=== PATIENT | female | born 1955 | race Caucasian/White ===

== ENCOUNTER 2017-08-23 05:33 | Inpatient (IN) | payer OTHER ==
[2017-08-23] MEDS ORDERED: DEXTROSE 5%-LR 1,000 ML IV (07:30)
[2017-08-23] MEDS: CEFAZOLIN 2 GM/50 ML (PMX) 50 ML IVPB (07:30)
[2017-08-23] MEDS ORDERED: MIDAZOLAM 1 MG/ML 2 ML INJ (07:40)
[2017-08-23] MEDS ORDERED: morphine SULFATE/PF (10 MG/10 ML) INJ (07:41)
[2017-08-23] MEDS ORDERED: BUPIVACAINE 0.75%/DEXT (SPINAL) 2 ML INJ (07:53)
[2017-08-23] MEDS: LACTATED RINGER'S 1,000 ML IV ×3 (08:07→18:30)
[2017-08-23] MEDS: BUPIVACAINE 0.25%/EPI (SDV) 30 ML INJ INJ (08:29)
[2017-08-23] MEDS ORDERED: HYDROmorphONE 0.5 MG/0.5 ML SYG IV (08:30)
[2017-08-23] MEDS ORDERED: ZOLPIDEM 5 MG TAB PO (08:30)
[2017-08-23] MEDS ORDERED: BISACODYL (EC) 5 MG TAB PO (08:30)
[2017-08-23] MEDS: KETOROLAC 30 MG INJ IV ×3 (08:30→20:45)
[2017-08-23] MEDS ORDERED: HYDROCODONE/APAP (5/325) TAB PO ×2 (08:30)
[2017-08-23] MEDS ORDERED: DIPHENHYDRAMINE 50 MG CAP PO (08:30)
[2017-08-23] MEDS: HYDROCHLOROTHIAZIDE 25 MG TAB PO (09:00)
[2017-08-23] MEDS: THROMBIN 5000 UNIT VIAL (09:02)
[2017-08-23] MEDS ORDERED: LIDOCAINE 2% (SDV) 5 ML INJ (10:55)
[2017-08-23] MEDS ORDERED: ETOMIDATE 20 MG INJ (10:55)
[2017-08-23] MEDS ORDERED: ROCURONIUM 50 MG INJ (10:55)
[2017-08-23] MEDS ORDERED: GLYCOPYRROLATE 0.4 MG INJ (10:56)
[2017-08-23] MEDS ORDERED: CEFAZOLIN 1 GM INJ (10:56)
[2017-08-23] MEDS ORDERED: NEOSTIGMINE 3 MG/3 ML SYRINGE (10:56)
[2017-08-23] MEDS ORDERED: ONDANSETRON 4 MG INJ (11:02)
[2017-08-23] MEDS ORDERED: MEPERIDINE 25 MG INJ IV (11:30)
[2017-08-23] MEDS ORDERED: HYDROmorphONE (0.2 MG/ML) 10ML SYG IV ×2 (11:30)
[2017-08-23] MEDS ORDERED: DIPHENHYDRAMINE 50 MG INJ IV (11:30)
[2017-08-23] MEDS ORDERED: LABETALOL HCL 20MG INJ IV (11:30)
[2017-08-23] MEDS ORDERED: FENTAnyl 50 MCG/ML VIAL IV (11:30)
[2017-08-23] MEDS ORDERED: ONDANSETRON 4 MG INJ IV (11:30)
[2017-08-23] MEDS: ONDANSETRON 4 MG INJ IV ×3 (11:34→18:32)
[2017-08-23] MEDS: METOCLOPRAMIDE 10 MG TAB PO ×3 (12:00→23:31)
[2017-08-23] MEDS: CEFAZOLIN 1 GM/50 ML (PMX) 50 ML IVPB ×2 (13:24→21:29)
[2017-08-24] MEDS: KETOROLAC 30 MG INJ IV ×4 (02:11→20:31)
[2017-08-24] MEDS: LACTATED RINGER'S 1,000 ML IV (03:03)
[2017-08-24 05:36] LABS: ADD MAN DIFF? NO
[2017-08-24 05:41] LABS: BASOPHILS % 0.2 % (0.0-2.0); EOSINOPHILS # 0.1 10^3/ul (0.0-0.5); EOSINOPHILS % 0.4 % (0.0-7.0); HEMATOCRIT 34.4 % (37.0-47.0); HEMOGLOBIN 11.6 g/dl (12.0-16.0); LYMPHOCYTES # 1.5 10^3/ul (0.8-2.9); MEAN CORPUSCULAR HEMOGLOBIN 31.6 pg (29.0-33.0); MEAN CORPUSCULAR HGB CONC 33.7 g/dl (32.0-37.0); MEAN CORPUSCULAR VOLUME 93.7 fl (82.0-101.0); MEAN PLATELET VOLUME 10.8 fl (7.4-10.4); MONOCYTE # 1.3 10^3/ul (0.3-0.9); PLATELET COUNT 291 10^3/UL (140-415); RED BLOOD COUNT 3.67 10^6/ul (4.20-5.40)
[2017-08-24] MEDS: METOCLOPRAMIDE 10 MG TAB PO ×3 (05:55→17:51)
[2017-08-24] MEDS: CEFAZOLIN 1 GM/50 ML (PMX) 50 ML IVPB (05:55)
[2017-08-24 06:02] LABS: ANION GAP 11 (8-16); BLOOD UREA NITROGEN 9 mg/dl (7-20); CARBON DIOXIDE 30 mmol/L (21-31); CHLORIDE 104 mmol/L (97-110); CREATININE 0.72 mg/dl (0.44-1.00); POTASSIUM 3.5 mmol/L (3.5-5.1); SODIUM 141 mmol/L (135-144)
[2017-08-24] MEDS: HYDROCHLOROTHIAZIDE 25 MG TAB PO (08:57)
[2017-08-25] MEDS: KETOROLAC 30 MG INJ IV ×3 (03:02→14:30)
[2017-08-25] MEDS: METOCLOPRAMIDE 10 MG TAB PO ×4 (05:50→18:26)
[2017-08-25 05:55] LABS: ADD MAN DIFF? NO
[2017-08-25 06:08] LABS: BASOPHIL # 0.1 10^3/ul (0.0-0.1); BASOPHILS % 0.4 % (0.0-2.0); EOSINOPHILS # 0.2 10^3/ul (0.0-0.5); EOSINOPHILS % 1.6 % (0.0-7.0); HEMATOCRIT 33.8 % (37.0-47.0); HEMOGLOBIN 11.3 g/dl (12.0-16.0); LYMPHOCYTES # 1.8 10^3/ul (0.8-2.9); LYMPHOCYTES % 14.2 % (15.0-51.0); MEAN CORPUSCULAR HEMOGLOBIN 31.2 pg (29.0-33.0); MEAN CORPUSCULAR HGB CONC 33.4 g/dl (32.0-37.0); MEAN CORPUSCULAR VOLUME 93.4 fl (82.0-101.0); MONOCYTE # 1.3 10^3/ul (0.3-0.9); MONOCYTES % 10.1 % (0.0-11.0); NEUTROPHIL # 9.4 10^3/ul (1.6-7.5); NEUTROPHILS % 73.3 % (39.0-77.0); PLATELET COUNT 267 10^3/UL (140-415); RED BLOOD COUNT 3.62 10^6/ul (4.20-5.40); RED CELL DISTRIBUTION WIDTH 13.1 % (11.5-14.5)
[2017-08-25 06:08] LABS: WHITE BLOOD COUNT 12.8 10^3/ul (4.8-10.8)
[2017-08-25] MEDS: HYDROCHLOROTHIAZIDE 25 MG TAB PO (09:43)
== END 2017-08-25 21:30 | disposition home or self-care (01) | DRG 743 ==
LOC: REC 05:33 → MS1 12:45
PROC: 0UT97ZZ Resection of Uterus, Via Natural or Artificial Opening (ICD-10-PCS; principal; 2017-08-23 07:30)
PROC: 0TSD0ZZ Reposition Urethra, Open Approach (ICD-10-PCS; 2017-08-23 07:30)
PROC: 0UB70ZZ Excision of Bilateral Fallopian Tubes, Open Approach (ICD-10-PCS; 2017-08-23 07:30)
PROC: 0TUD0JZ Supplement Urethra with Synthetic Substitute, Open Approach (ICD-10-PCS; 2017-08-23 07:30)
PROC: 0UBGXZX Excision of Vagina, External Approach, Diagnostic (ICD-10-PCS; 2017-08-23 07:30)
PROC: 0JQC0ZZ Repair Pelvic Region Subcutaneous Tissue and Fascia, Open Approach (ICD-10-PCS; 2017-08-23 07:30)
PROC: 0TJB8ZZ Inspection of Bladder, Via Natural or Artificial Opening Endoscopic (ICD-10-PCS; 2017-08-23 07:30)
DX: N81.3 Complete uterovaginal prolapse (principal); N39.46 Mixed incontinence; N81.6 Rectocele; N95.2 Postmenopausal atrophic vaginitis; N84.2 Polyp of vagina; I10 Essential (primary) hypertension; K59.00 Constipation, unspecified; D25.9 Leiomyoma of uterus, unspecified; E78.5 Hyperlipidemia, unspecified; G89.29 Other chronic pain; R10.2 Pelvic and perineal pain
CPT/HCPCS: 80051; 82565; 84520; 85025; 86850; 86900; 86901; 87086; 88305